=== PATIENT | female | born 1980 | race Caucasian/White ===

== ENCOUNTER → 2016-12-01 | Outpatient (CLI) | payer BC ==
--- NOTE | 2016-12-01 09:46 | RADRPT ---
PROCEDURE: X-ray pelvis and x-ray right hip CLINICAL INDICATION: pain TECHNIQUE: AP pelvis as well as AP and frog lateral views of the right hip were obtained. Images were viewed on a PACS workstation. COMPARISON: None. FINDINGS: There is normal mineralization and alignment. No fracture or osseous lesion is identified. There are no significant degenerative changes in the hip. The soft tissues are unremarkable. RPTAT: AA IMPRESSION: Unremarkable pelvis and right hip without evidence of an acute fracture. Physician Tamra Date Time Electronically viewed and signed by Physician Tamra on 12/01/2016 09:45 RA/
== END | disposition home or self-care (01) ==
LOC: HKI 10:31
PROVIDERS: ATTEND Orthopaedic Surgery
DX: M25.551 Pain in right hip (principal); M70.61 Trochanteric bursitis, right hip
CPT/HCPCS: 20610; 73502; G0463